=== PATIENT | female | born 1950 | race Caucasian/White ===

== ENCOUNTER → 2016-11-23 | Outpatient (CLI) | payer BC ==
--- OUTSIDE RECORDS SUMMARY | 2016-11-23 09:14 | XMS REPORT ---
Author Author GERRY STEPHENS Organization [employer] Address Unknown Phone Unavailable Care Team Providers Care Showplace Manager Name Role Phone GERRY STEPHENS CP Unavailable Allergies No Known Allergies Problems Problem Type Condition Code Onset Dates Condition Status Problem Unspecified asthma, uncomplicated J45.909 Active Problem Anhedonia R45.84 Active Problem Uncontrolled type 2 diabetes mellitus without complication, without long-term current use of insulin E11.65 Active Assessment Uncontrolled type 2 diabetes mellitus without complication, without long-term current use of insulin E11.65 Active Problem High risk medication use Z79.899 Active Problem penitentiary current use of inhaled steroid Z79.51 Active Medications No Known Medications Results No Known Results Summary Purpose [employer] Submission
--- NOTE | 2016-11-29 11:32 | Diagnostic Imaging Report ---
EXAMINATION: Bilateral screening mammogram with a Computer Aided Detection (CAD) system. INDICATION: Screening. PERSONAL HISTORY: No current complaints stated on the questionnaire. COMPARISON: 02/18/2016. FINDINGS: The breasts are composed of heterogeneously dense parenchyma which may decrease mammographic sensitivity. There is a focal asymmetry seen in the central upper aspect of the right breast with smooth margins. This appears larger compared to the previous study. It appears to be part of multiple smoothly marginated nodules in the right breast, mostly stable, likely secondary to fibrocystic changes. The left breast appears stable. IMPRESSION: Focal compression view and ultrasound evaluation for an enlarging focal asymmetry in the central upper aspect of the right breast would be recommended. ACR BI-RADS Category 0: Incomplete. (Needs additional imaging evaluation). Result letter will be mailed to the patient. Note: At least 10% of breast cancer is not imaged by mammography. Dictated by: Dictated on workstation # [id number]
== END ==
LOC: RAD 09:12
PROVIDERS: ATTEND Nurse Practitioner Family
DX: Z12.31 Encounter for screening mammogram for malignant neoplasm of breast (principal)

== ENCOUNTER → 2016-12-08 | Outpatient (CLI) | payer BC, MEDICAID ==
--- NOTE | 2016-12-08 14:55 | Diagnostic Imaging Report ---
EXAMINATION: Right breast diagnostic mammogram. CAD is utilized. The current study was also evaluated with a Computer Aided Detection (CAD) system. Indication mass in the central slightly lateral aspect of the right breast. There is a 1 cm mass in the central slightly lateral aspect of the right breast with well defined margins seen in favor of benign etiology. Other smaller nodules are also identified as well as benign appearing calcifications. IMPRESSION: 1 mm well defined lesion in the central aspect of the right breast is likely benign. Ultrasound evaluation pending. BI-RADS 0. ACR BI-RADS Category 0: Incomplete. (Needs additional imaging evaluation). Result letter will be mailed to the patient. Note: At least 10% of breast cancer is not imaged by mammography. Dictated by: Dictated on workstation # [id number]
--- NOTE | 2016-12-08 19:46 | Diagnostic Imaging Report ---
EXAMINATION: Right breast ultrasound. INDICATION: Mass seen on mammography in the central aspect of the right breast. FINDINGS: At the 9:00 zone, 5 cm from the nipple, there is a 1.1 x 0.6 x 0.7 cm hypoechoic lobulated lesion with minimal internal vascularity demonstrated. There is no shadowing. The lesion is wider than tall and is lobulated, probably benign such as fibroadenoma. There are simple cysts seen at 11:00 zone, 2 cm from the nipple, up to 1.3 cm in size. IMPRESSION: Simple cysts about 11:00 are seen. In addition, there is a solid lobulated lesion measuring up to 1.1 cm at the 9:00 zone with no aggressive features. This may represent a fibroadenoma. Six-month followup ultrasound to reevaluate this solid lesion at the 9:00 zone is recommended. ACR BI-RADS Category 3: Probably benign findings. Result letter will be mailed to the patient. Note: At least 10% of breast cancer is not imaged by mammography. Dictated by: Dictated on workstation # [id number]
== END ==
LOC: RAD 13:49
PROVIDERS: ATTEND Nurse Practitioner Family
DX: R92.8 Other abnormal and inconclusive findings on diagnostic imaging of breast (principal); N60.11 Diffuse cystic mastopathy of right breast

== ENCOUNTER → 2017-06-23 | Outpatient (CLI) | payer BC, MEDICAID ==
--- NOTE | 2017-06-23 20:33 | Diagnostic Imaging Report ---
EXAMINATION: Ultrasound right breast limited. INDICATION: Follow-up exam. FINDINGS: The previous right breast ultrasound exam of 12/08/2016 noted a 1.1 cm solid lobulated lesion in the 9 o'clock position of the right breast roughly 5 cm from the nipple. This finding is felt to be most likely due to a fibroadenoma. On this exam, that lesion is again identified and does not appear to have changed significantly in size or appearance. I do suspect that this is a benign process such as a fibroadenoma. If a tissue diagnosis is desired, then an ultrasound-guided biopsy could be performed. If further imaging is desired, then MRI of the breast should be considered. According to the patient, she has a distant history of lobular carcinoma in situ of both breasts. If there is no intervention at this time and MRI exam is not performed, then a short-term (six-month) follow-up ultrasound exam should be obtained. IMPRESSION: 1. The solid lesion in the 9 o'clock position of the right breast seen previously is again evident and appears stable. Most likely, this is a benign process. Considerations and recommendations as above. 2. These results were discussed with CARLY Lozoya. ACR BI-RADS Category 4: Suspicious. Dictated by: Dictated on workstation # [id number]
== END ==
LOC: RAD 08:26
PROVIDERS: ATTEND Nurse Practitioner Family
DX: R92.8 Other abnormal and inconclusive findings on diagnostic imaging of breast (principal)

== ENCOUNTER → 2017-08-03 | Outpatient (CLI) | payer MEDICARE, OTHER, MEDICAID ==
[~2017-08-03] VITALS: Ht 165.1 cm; Wt 90.7 kg
[~2017-08-03] MED LIST: LIDOCAINE 1% INJ 20 ML (XYLOCAINE) VIAL INJ ONE
[2017-08-03 13:15] VITALS: BP 120/68
[2017-08-03 14:15] VITALS: BP 121/69
--- NOTE | 2017-08-03 17:23 | Diagnostic Imaging Report ---
EXAMINATION: Vacuum-assisted ultrasound-guided biopsy of breast mass right. A metallic clip placed to maxwell biopsy site. INDICATION: Right breast mass. CONSENT: Informed consent was obtained from the patient. The risks, benefits, potential complications and alternatives were reviewed and all questions answered to the patient's satisfaction. FINDINGS: Ultrasound images demonstrate a right breast solid mass at 9:00, 5 CM from the nipple. PROCEDURE: After sterile preparation and draping, 1% lidocaine was utilized for local anesthesia. A vacuum-assisted biopsy device with 14-gauge needle was introduced under live ultrasound guidance into the lesion. Good needle position was documented with ultrasound images. A metallic clip was placed to maxwell the site of the biopsy. A subsequent mammogram is performed and confirms the proper positioning of the clip. Multiple samples were obtained and sent to pathology. The patient tolerated the procedure well with no immediate complications. IMPRESSION: Successful ultrasound-guided biopsy of right breast mass at the 9:00 zone. A metallic clip placed to maxwell biopsy site. Dictated by: Dictated on workstation # [id number]
--- NOTE | 2017-08-03 19:16 | Diagnostic Imaging Report ---
EXAMINATION: CC and the lateral views of the right breast. INDICATION: Documentation of good position after ultrasound-guided biopsy. FINDINGS: In the lateral aspect of the right breast there is a biopsy clip marking the position of a solid lesion seen by ultrasound at the 9 o'clock zone. IMPRESSION: Satisfactory clip position marking solid nodule location in the outer aspect of the right breast after ultrasound-guided biopsy. Pathology results are pending. Dictated by: Dictated on workstation # [id number]
== END ==
LOC: RAD 12:57
PROVIDERS: ATTEND Surgery
DX: N63.11 Unspecified lump in the right breast, upper outer quadrant (principal)
CPT/HCPCS: 19083